=== PATIENT | female | born 1980 | race Caucasian/White ===

== ENCOUNTER → 2018-07-08 | Outpatient (CLI) | payer OTHER ==
--- NOTE | 2018-07-11 16:08 | PATHOLOGY ---
[facility] Accession Number: [id number] . 01 Material submitted: . LESION RIGHT LOWER THIGH . 01 Clinician provided ICD-10: T66.331A . 01 Clinical history: . Spider bite right leg lower thigh . 02 Diagnosis: Skin and subcutaneous tissue, right lower thigh lesion: - Coagulative necrosis and acute inflammation of skin and subcutaneous tissue consistent with spider bite. (JPM:[facility] 07/11/2018) QTP/07/11/2018 . 02 Electronically signed: . Cr Jenkins MD, Pathologist NPI- [id number] . 01 Gross description: . The specimen is received in formalin, labeled "Ree Ruvalcaba, right leg" and consists of a necrotic brown-yellow segment of skin measuring 1.7 x 1.2 x 0.3 cm which is serially sectioned and entirely submitted in A1. (SDY; 07/08/2018) SYU/SYU . 02 Pathologist provided ICD-10: I96, L08.9 . 02 CPT . 729694 Performed at: 01 [facility] [address], [place] [id number] MD Modesto Pina MD Phone: [phone] Performed at: 02 [facility] [address], [place] [id number] MD Cr Jenkins MD Phone: [phone]
== END | disposition home or self-care (01) ==
LOC: SPEC 11:55
PROVIDERS: ATTEND Surgery
DX: T63.331A Toxic effect of venom of brown recluse spider, accidental (unintentional), initial encounter (principal); Y92.89 Other specified places as the place of occurrence of the external cause
CPT/HCPCS: 88305

== ENCOUNTER → 2022-01-12 | Outpatient (CLI) | payer OTHER ==
[~2022-01-12] MED LIST: ARIP5TAB13 PO; BENZ200C47 PO; BUTA-153 PO; CITA40TA6 PO; CRAN1CAP12 PO; ERGO500089 PO; ESOM20CA PO; GUAI12003 PO; MEGE40TA3 PO; METF500T16 PO; MULT-691 PO; NORE0.352 PO
[2022-01-12 13:05] LABS: BASO # 0.1 x10^3/uL (0.0-0.2); BASO % 1 % (0-3); EOS # 0.2 x10^3/uL (0.0-0.7); EOS % 3 % (0-3); HEMATOCRIT 34.2 % (36.0-47.0); LYMPH # 1.9 x10^3/uL (1.0-4.8); LYMPH % 23 % (24-48); MEAN CORPUSCULAR HEMOGLOBIN 27 pg (25-35); MEAN CORPUSCULAR HGB CONC 32 g/dL (31-37); MEAN CORPUSCULAR VOLUME 83 fL (79-100); MONO # 0.8 x10^3/uL (0.0-1.1); MONO % 10 % (0-9); NEUT # 5.1 x10^3/uL (1.8-7.7); NEUT % 63 % (31-73); PLATELET COUNT 303 x10^3/uL (140-400); RED BLOOD COUNT 4.14 x10^6/uL (3.50-5.40); RED CELL DISTRIBUTION WIDTH 16.6 % (11.5-14.5); WHITE BLOOD COUNT 8.1 x10^3/uL (4.0-11.0)
== END ==
LOC: SURGPAT 12:07
PROVIDERS: ATTEND Obstetrics & Gynecology
DX: Z01.812 Encounter for preprocedural laboratory examination (principal)
CPT/HCPCS: 36415; 85025

== ENCOUNTER 2022-01-18 06:08 | Day surgery (SDC) | payer OTHER ==
[2022-01-12 12:48] VITALS: BP 120/67
[~2022-01-18] VITALS: Ht 165.1 cm; Wt 91.0 kg
[~2022-01-18 06:08] MED LIST changes: +HYDROmorphone 2 MG/ML INJ. IVP PRN; +IV RINGERS,LACTATED 1000ML 1,000 ML IV SCH; +MORPHINE SULFATE 2 MG/ML INJ. IVP PRN; +PROCHLORPERAZINE 10 MG/2 ML VIAL. IVP PRN; +fentaNYL PF VIAL 100 MCG/2 ML VIAL IVP PRN
[2022-01-18 06:30] VITALS: BP 115/68
[2022-01-18] MEDS ORDERED: SCOPOLAMINE 1.5MG PATCH. TD ONE (06:45)
[2022-01-18] MEDS ORDERED: FAMOTIDINE 20 MG/2 ML VIAL ONE (06:48)
[2022-01-18] MEDS ORDERED: DEXAMETHASONE SOD PHOS 4 MG/ML VIAL ONE (06:48)
[2022-01-18] MEDS ORDERED: PROPOFOL 10 MG/ML (20ML) VIAL. IV ONE ×2 (06:48→08:03)
[2022-01-18] MEDS ORDERED: ONDANSETRON PF 4 MG/2 ML VIAL. ONE (06:48)
[2022-01-18] MEDS ORDERED: fentaNYL PF VIAL 100 MCG/2 ML VIAL ONE ×2 (06:49→08:45)
[2022-01-18] MEDS ORDERED: MIDAZOLAM HCL/PF 2 MG/2 ML VIAL. ONE (06:49)
[2022-01-18] MEDS ORDERED: KETOROLAC 30 MG/ML VIAL. ONE (08:03)
--- NOTE | 2022-01-18 08:43 | PDOC4 ---
BRIEF OPERATIVE NOTE Date: Jan 18, 2022 Pre-Op Diagnosis DUB, fibroid uterus Post-Op Diagnosis same but no submucosal fibroids seen Procedure Performed hysteroscopy D&C with novasure endometrial ablation Surgeon Dr. Martha Smith Anesthesiologist Dr. Qureshi Anesthesia Type: General Blood Loss 5cc IV Fluid see anesthesia records Urine Output straight cath prior about 50cc Specimens Obtained endometrial currettings Findings uterus sounded to 9cm normal bilateral tubal openings some tissue in NANCI but no polyps or submucosal fibroids seen novasure set at 6L , 3.1 W and burned 1min 25sec Complications none Operative Note [id number] MARTHA SMITH MD Jan 18, 2022 08:43
[2022-01-18] MEDS ORDERED: SIMETHICONE 80 MG TAB.CHEW PO PRN (08:45)
[2022-01-18] MEDS ORDERED: CALCIUM CARBONATE 500 MG TAB.CHEW PO PRN (08:45)
[2022-01-18] MEDS ORDERED: diphenhydrAMINE HCL 25 MG CAPSULE PO PRN (08:45)
[2022-01-18] MEDS ORDERED: HYDROcodone/APAP 5/325MG 1 TAB TABLET PO PRN (08:45)
[2022-01-18] MEDS ORDERED: NALOXONE 0.4 MG/ML VIAL. IV PRN (08:45)
[2022-01-18] MEDS ORDERED: MAG HYDROX/ALUMINUM HYD/SIMETH 30 ML ORAL.SUSP PO PRN (08:45)
[2022-01-18] MEDS ORDERED: diphenhydrAMINE 50 MG/ML VIAL IV PRN (08:45)
[2022-01-18] MEDS ORDERED: 0.9 % SODIUM CHLORIDE 10 ML DISP.SYRIN. IV PRN (08:45)
[2022-01-18] MEDS ORDERED: oxyCODONE/APAP 5/325 1 TAB TABLET PO PRN (08:45)
[2022-01-18] MEDS: fentaNYL PF VIAL 100 MCG/2 ML VIAL IVP PRN ×2 (08:50→09:07)
--- NOTE | 2022-01-18 08:52 | OP ---
DATE OF SURGERY: 01/18/2022 PREOPERATIVE DIAGNOSES: Dysfunctional uterine bleeding and a fibroid uterus. POSTOPERATIVE DIAGNOSES: Dysfunctional uterine bleeding and a fibroid uterus, but no submucosal fibroids were seen to take care of at this time. PROCEDURE: Hysteroscopy, D and C with NovaSure endometrial ablation. SURGEON: Martha Perez MD. [employer]: OR personnel. ANESTHESIOLOGIST: Dr. Qureshi. ANESTHESIA: General. BLOOD LOSS: 5 mL. URINE OUTPUT: With a straight cath prior to procedure, I believe about 50 mL. IV FLUIDS: Please see anesthesia records. SPECIMENS: Endometrial curettings. FINDINGS: She had a uterus that sounded to 9 cm. Normal bilateral tubal openings and fundal area, normal endometrium. She had some tissue in the lower uterine segment, but no polyps or submucosal fibroids were seen. On the NovaSure part, the functional length was set at 6, the width settled at 3.1. Once the device was enabled and passed the cavity assessment check, it had a 1 minute and 25 second burn. COMPLICATIONS: None. DESCRIPTION OF PROCEDURE: This patient was taken to the operating room where general anesthesia was placed. The patient was placed in dorsal lithotomy position in Fabian stirrups. The patient's vagina was prepped and draped in the normal sterile fashion and a straight cath urine was done prior to my arrival. Upon my arrival, a timeout was performed. Once everyone agreed on the patient, the site, the procedure, the procedure was initiated. A weighted speculum was placed in the patient's vagina. A single-tooth tenaculum was used to grasp the anterior lip of the cervix. She was dilated to 5-6s with the Hegar dilators, sounded to 9 cm and the scope had been primed and was ready and white balanced. It was placed in with the above findings. At this point, a small sharp curette was done to get some tissue as we had not done an endometrial biopsy in the office, thinking that if there were fibroids, we could take care of them needle here at the same time. Since no fibroids were seen, we did not open the MyoSure reach. We just did a sharp curetting and sent the endometrial curettings for pathology and then took the NovaSure and set it at 6, opened up to 3.1 to the width. The cuff was placed up against the cervix. The device was enabled. The cavity assessment check was performed. Once it passed the cavity assessment check, it went into the ablation process, which lasted 1 minute and 25 seconds. There were no complications. The device was removed. When the tenaculum was removed, there was bleeding from the tenaculum sites with 2-0 Vicryl suture, was placed in where the tenaculum was with excellent results. Once this was done, the weighted speculum was removed. There was no active bleeding. Sponge stick was used to examine the vagina prior to removing it and the procedure was ended. All counts were correct x 2 by OR personnel. The patient was awakened from anesthesia and brought to recovery room in stable condition. RAJ DR: Neha TID: [id number]
[2022-01-18 09:11] VITALS: BP 121/72
--- NOTE | 2022-01-22 15:07 | PATHOLOGY ---
[facility] Accession Number: [id number] . 01 Material submitted: . endometrium - ENDOMETRIAL CURETTINGS . 01 Clinical history: . ABNORMAL BLEEDING D AND C, ABLATION . 02 Diagnosis: Endometrial curettings: - Chronic endometritis. . (JPM:mml; 01/22/2022) [facility] 01/22/2022 1333 Local . 02 Comment: Sections of the endometrial curettings reveal blood clot containing multiple segments of endometrium. The endometrial glands have an inactive to atrophic appearance. The endometrial stroma has a pseudodecidual appearance. There is an admixed chronic inflammatory cell infiltrate comprised of lymphocytes and plasma cells. The morphologic findings are supportive of the diagnosis of chronic endometritis. There is no evidence of hyperplasia or malignancy. . (JPM:mml; 01/22/2022) . 02 Electronically signed: . Cr Jenkins MD, Pathologist NPI- [id number] . 01 Gross description: . The specimen is received in formalin, labeled "Peg Ree, endometrial curettings". Received are multiple segments of dark velasco tissue measuring 4.0 x 3.0 x 0.2 cm in aggregate dimensions. The specimen is filtered and entirely submitted in cassette A1 to A4.([facility]; 01/19/2022) [facility] 01/19/2022 1215 Local . 02 Pathologist provided ICD-10: N71.1 . 02 CPT . 075298 Specimen Comment: A courtesy copy of this report has been sent to [phone] Specimen Comment: Report sent to Performed at: 01 [facility] [address] [place] [address] [address], [place], [place] [id number] MD Johnny Castellanos MD Phone: [phone] Performed at: [address] [id number] MD Cr Jenkins MD Phone: [phone]
== END 2022-01-18 09:44 | disposition home or self-care (01) ==
LOC: SURG 06:08
PROVIDERS: ATTEND Obstetrics & Gynecology
DX: N93.8 Other specified abnormal uterine and vaginal bleeding (principal); D25.9 Leiomyoma of uterus, unspecified; K21.9 Gastro-esophageal reflux disease without esophagitis; M19.90 Unspecified osteoarthritis, unspecified site; E11.9 Type 2 diabetes mellitus without complications; F32.9 Major depressive disorder, single episode, unspecified; Z87.440 Personal history of urinary (tract) infections; Z79.899 Other long term (current) drug therapy; Z98.890 Other specified postprocedural states; Z79.84 Long term (current) use of oral hypoglycemic drugs; Z88.8 Allergy status to other drugs, medicaments and biological substances
CPT/HCPCS: 58563; 81025; A4930; J1100; J1885; J2250; J2405; J2704; J3010; J3490